=== PATIENT | female | born 1965 | race Two or more races ===

== ENCOUNTER 2024-09-02 17:28 | Emergency (ER) | payer MEDICAID ==
[~2024-09-02] VITALS: Ht 157.5 cm; Wt 96.8 kg
[2024-09-02 17:37] VITALS: BP 127/87; PULSE 58; RESP 18; TEMP 98.2; O2SAT 100
== END 2024-09-02 20:33 | disposition home or self-care (01) ==
LOC: ER 17:29
DX: S93.492A Sprain of other ligament of left ankle, initial encounter (principal); X50.9XXA Other and unspecified overexertion or strenuous movements or postures, initial encounter; Y93.01 Activity, walking, marching and hiking; Y92.89 Other specified places as the place of occurrence of the external cause; Y99.8 Other external cause status
CPT/HCPCS: 73610; 99284

== ENCOUNTER 2025-01-06 15:29 | Emergency (ER) | payer MEDICAID ==
[~2025-01-06] VITALS: Ht 157.5 cm; Wt 78.8 kg
[2025-01-06 15:33] VITALS: TEMP 97.6
[2025-01-06 17:10] VITALS: BP 162/85; PULSE 68; O2SAT 98
[2025-01-06 17:17] LABS: BILIRUBIN,URINE NEGATIVE (Neg); CLARITY,URINE SLIGHTLY CLOUDY (Clear); COLOR,URINE YELLOW (Yellow); GLUCOSE, URINE NEGATIVE (Neg); KETONES,URINE TRACE mg/dl (Neg); LEUKOCYTE ESTERASE ,URINE NEGATIVE (Neg); OCCULT BLOOD,URINE TRACE-INTACT (Neg); PROTEIN,URINE NEGATIVE (Neg); UROBILINOGEN,URINE 0.2 E.U/dL (0.2-1.0)
[2025-01-06 17:34] LABS: UA COLLECTION TYPE CLN CATCH MIDSTREAM
[2025-01-06 17:36] LABS: WBC,URINE 0-4 /HPF (0-4)
[2025-01-06 17:37] LABS: BACTERIA,URINE 4+ /HPF (Neg); MUCUS STRANDS FEW /LPF (Neg); RBC,URINE 0-2 /HPF (0-2); SQUAMOUS EPITHELIAL CELL,UR FEW /LPF (FEW)
[2025-01-06 17:42] LABS: NITRITES, URINE POSITIVE (Neg)
[2025-01-06] MEDS ORDERED: CEPH-585 PO (18:10)
[2025-01-06] MEDS ORDERED: METH-798 PO (18:10)
[2025-01-06 18:12] VITALS: RESP 17
[2025-01-06] MEDS: ketorolac trometh 30MG/ML vial 30 MG/ML VIAL IV STA (18:12)
[2025-01-06] MEDS: CefTRIAXone 1000mg IM Kit (w/lidocaine diluent) IM STA (18:13)
== END 2025-01-06 18:33 | disposition home or self-care (01) ==
LOC: ER 15:29
DX: M54.9 Dorsalgia, unspecified (principal); N39.0 Urinary tract infection, site not specified
CPT/HCPCS: 81001; 87088; 87186; 96372; 96374; 99284; J0696; J1885; 87077

== ENCOUNTER 2025-01-20 13:57 | Emergency (ER) | payer MEDICAID ==
[~2025-01-20] VITALS: Ht 157.5 cm; Wt 78.3 kg
[~2025-01-20 13:57] MED LIST: METH-798 PO
[2025-01-20 13:59] VITALS: BP 115/82; PULSE 67; O2SAT 97
[2025-01-20 14:30] LABS: BILIRUBIN,URINE NEGATIVE (Neg); CLARITY,URINE CLEAR (Clear); COLOR,URINE YELLOW (Yellow); GLUCOSE, URINE NEGATIVE (Neg); KETONES,URINE NEGATIVE (Neg); LEUKOCYTE ESTERASE ,URINE NEGATIVE (Neg); NITRITES, URINE NEGATIVE (Neg); OCCULT BLOOD,URINE TRACE-INTACT (Neg); PROTEIN,URINE NEGATIVE (Neg); UROBILINOGEN,URINE 0.2 E.U/dL (0.2-1.0)
[2025-01-20 14:31] LABS: URINE HCG NEGATIVE (NEG)
[2025-01-20 14:35] LABS: UA COLLECTION TYPE CLN CATCH MIDSTREAM
[2025-01-20 14:37] LABS: BACTERIA,URINE NONE SEEN /HPF (Neg); MUCUS STRANDS NONE SEEN /LPF (Neg); RBC,URINE 0-2 /HPF (0-2); SQUAMOUS EPITHELIAL CELL,UR FEW /LPF (FEW); WBC,URINE 0-4 /HPF (0-4)
[2025-01-20] MEDS ORDERED: ketorolac trometh 15mg/ml vial 15 MG/ML ML IM ONE (15:50)
[2025-01-20] MEDS: ketorolac trometh 30MG/ML vial 30 MG/ML VIAL IM ONE (16:05)
[2025-01-20 17:29] VITALS: RESP 16
[2025-01-20] MEDS ORDERED: IBUP-864 PO (18:32)
[2025-01-20 18:36] VITALS: TEMP 98
== END 2025-01-20 18:48 | disposition home or self-care (01) ==
LOC: ER 13:57
DX: R19.00 Intra-abdominal and pelvic swelling, mass and lump, unspecified site (principal)
CPT/HCPCS: 74176; 76856; 81001; 81025; 93976; 96372; 99285; J1885

== ENCOUNTER 2025-04-18 08:22 | Emergency (ER) | payer MEDICAID ==
[~2025-04-18] VITALS: Ht 157.5 cm; Wt 77.7 kg
[~2025-04-18 08:22] MED LIST changes: +IBUP-864 PO
[2025-04-18 08:23] VITALS: BP 148/90; PULSE 70; RESP 15; TEMP 97.7; O2SAT 99
--- NOTE | 2025-04-18 09:23 | Physician Documentation ---
History of Present Illness ~ Chief Complaint: Laceration Stated Complaint: FINGER LACS Time Seen by MD: 09:17 OK to notify your PCP?: Yes Source: patient Mode of Arrival: POV Exam Limitations: no limitations HPI 59-year-old female presents with multiple small lacerations and abrasions to her bilateral fingers. She states that she was reaching up high and trying to grab a plate off the shelf and it slipped and broke in her hands. Last tetanus vaccine is unknown. No blood thinners. Bleeding controlled with a Band-Aid. Tetanus Within 5 Years: No Medication Reconciliation Allergies: Coded Allergies: No Known Allergies (Unverified , 01/06/25) Scheduled Ibuprofen (Ibu), 1 TAB PO Q8H Methocarbamol (Methocarbamol), 1-2 TAB PO Q8H Review of Systems All Other Systems at this time: Reviewed and Negative Physical Exam Vital Signs: RN Vital Signs have been reviewed: Yes, Temperature: 97.7, Heart Rate: 70, Respiratory Rate: 15, BP: 148/90, Pulse Oximetry: 99, Weight: 77.730 Oxygen Flow Rate: 0 Pulse Oximetry Reflects: adequate oxygenation Physical Exam General: Alert, no distress. HEENT: No injection, moist mucous membranes. Neck: Full range of motion. Respiratory: No respiratory distress, equal chest rise and fall. Chest: No accessory muscle use. Cardiovascular: Regular rate and rhythm. Gastrointestinal: Nondistended. Extremities: Good CSM, good sensation, full range of motion in bilateral fingers. Neurologic: Oriented x4. Psychiatric: Normal mood and affect. Skin: Small superficial laceration to right middle finger, right index finger and left middle finger all at the proximal interphalangeal joints. There is a small abrasion to the right index MCP joint and left thumb. Procedures Laceration/Wound Repair Laceration : Anesthesia: none Prep: irrigated by nurse Debrided: minimal Undermining: none Margins: flaps aligned Foreign Body: not identified Repaired: skin Wound Repaired With: Steri-strips, Dermabond Dressing Applied: simple, non-adherent Splint Applied?: No Sling Applied?: No Tolerated Procedure Well?: yes, no complications Progress Results/Orders Reviewed/noted all lab results: Yes Results/Orders Orders - SOFIE [employer]MORE [employer] Finger(S) (04/18/25 09:26) * Additional Wound Care Orders (04/18/25 09:29) Finger(S) (04/18/25 ) Completed Orders - [employer]FI[employer] Finger(S) (04/18/25 09:26) Acetaminophen 325mg Tablet (Tylenol Tabl (04/18/25 09:30) Tetanus/Pertuss/Diph Acell/Pf (Boostrix (04/18/25 09:30) Finger(S) (04/18/25 ) Medications Received in ER Medications (Trade) Dose Ordered Sig/Ruby Route PRN Reason Start Time Stop Time Status Last Admin Dose Admin (Tylenol tablet) 650 mg ONCE ONCE PO 04/18/25 09:30 04/18/25 09:36 DC 04/18/25 10:03 650 MG (Boostrix vaccine syringe) 0.5 ml ONCE ONCE IMVAC 04/18/25 09:30 04/18/25 09:36 DC 04/18/25 10:05 0.5 ML Vital Signs 04/18/25 08:23 Temp 97.7 Pulse 70 Resp 15 B/P (MAP) 148/90 Pulse Ox 99 O2 Flow Rate 0 EKG/XRAY/CT/US/VASC/MRI Bone/Soft Tissue X-Ray (Ext.) : Additional Comment Bilateral fingers x-rays; no joint effusion, no acute fracture, no soft tissue swelling, no dislocation, or foreign body. Medical Decision Making Findings 59-year-old female presents with bilateral finger small lacerations and abrasions after plate broke when when she was taken off a shelf. Bleeding controlled on arrival with Band-Aids. The small lacerations are very superficial but to rule out any foreign bodies from the broken plate I obtained bilateral finger x-rays. x-rays do not reveal any foreign body. I irrigated all wounds thoroughly and closed the small lacerations with Steri-Strips and skin glue. She does not remember when her last tetanus was so that was administered while here in the department. She was given Tylenol for pain control. She should monitor for signs and symptoms of infection which we discussed her since she is not being sent home with an antibiotic. If any of those symptoms of infection arrived she should be seen immediately. She should return back here for any new or worsening symptoms and follow up with her primary care in the next 4 days. She has also been educated to let the skin glue come off by itself and do not pick at it. Differential Dx:Considerations: Include: Contusion, Fracture, Neurovascular injury, Retained foreign body Departure Disposition: 01 HOME / SELF CARE / HOMELESS Impression: Primary Impression: Laceration Condition: Stable Discharge Instructions: Laceration Care (Skin Glue) Additional Instructions: You can take Tylenol and/or ibuprofen for pain relief at home. Please allow for the Steri-Strips and skin glue to come off naturally and do not pick at it. They should fall off in roughly 5 days. You can get them wet but do not use any lotions or ointments as this causes the glue to, faster. Keep wounds clean and dry. If you notice any signs of infection such as fevers, redness around the site, purulent discharge you may have a infected wound which would require antibiotics and for you to be seen immediately. Recent prior primary care provider in the next 4 days and return back here for any new or worsening symptoms. Referrals: NO PRIMARY CARE PROVIDER (PCP) Education Educated: Patient Educated regarding: diagnosis, treatment, prognosis, need for follow up Signature Scribe Signature: . Attestation: Scribed for Sofie Elmore [employer] by Sofie Soriano NP . 04/18/25 10:37 SOFIE ELMOREP Apr 18, 2025 09:23
[2025-04-18] MEDS: acetaminophen 325mg tablet PO ONE (10:03)
[2025-04-18] MEDS: TETanus/Pertussis (Acell)/Diphther VAC/PF (Tdap-Adult) 0.5ml syringe IMVAC ONE (10:05)
--- NOTE | 2025-04-18 10:11 | RADIOLOGY REPORT ---
BILATERAL FINGERS: 3 view(s) were obtained HISTORY: LACERATION LT 2ND FINGER COMPARISON: None. FINDINGS: Right fingers: No fracture. No osseous lesions. Bones are in anatomic alignment. Moderate degenerativ e changes of the 1st and 2nd distal interphalangeal joints. Left fingers: No fracture. No osseous lesions. Bones are in anatomic alignment. Soft tissue swelling. Moderate degenerative changes of the 2nd distal interphalangeal joint. IMPRESSION: 1. Soft tissue swelling of the 2nd digit without fracture 2. Moderate interphalangeal joint degenerative changes
== END 2025-04-18 10:38 | disposition home or self-care (01) ==
LOC: ER 08:22
DX: S61.212A Laceration without foreign body of right middle finger without damage to nail, initial encounter (principal); S61.213A Laceration without foreign body of left middle finger without damage to nail, initial encounter; S61.210A Laceration without foreign body of right index finger without damage to nail, initial encounter; X58.XXXA Exposure to other specified factors, initial encounter; Y93.89 Activity, other specified; Y92.89 Other specified places as the place of occurrence of the external cause; Y99.8 Other external cause status
CPT/HCPCS: 12001; 73140; 90471; 90715; 99283

== ENCOUNTER 2025-09-04 05:50 | Emergency (ER) | payer MEDICAID ==
[~2025-09-04] VITALS: Ht 157.5 cm; Wt 76.4 kg
[2025-09-04 05:54] VITALS: TEMP 98.2
--- NOTE | 2025-09-04 07:57 | Physician Documentation ---
History of Present Illness ~ Chief Complaint: Abscess Stated Complaint: UNDERARM PAIN Time Seen by MD: 06:00 Primary Medical Doctor: None HPI 60-year-old female presenting for a lump in her right axilla. She states that there is a lump that has grown in size and has become red and more swollen. This 1st appeared about a week ago and has gradually been getting worse. She states that now when she tries to do any work around the house or in the garden her armpit will hurt. She otherwise denies any fever, chills or any other associated symptoms. Tetanus Within 5 Years: Yes (2024) Medication Reconciliation Allergies: Coded Allergies: No Known Allergies (Unverified , 09/04/25) Scheduled Ibuprofen (Ibu), 1 TAB PO Q8H Methocarbamol (Methocarbamol), 1-2 TAB PO Q8H Review of Systems All Other Systems at this time: Reviewed and Negative Physical Exam Vital Signs: Temperature: 98.2, Source: Oral, Heart Rate: 56, Respiratory Rate: 16, BP: 165/75, Pulse Oximetry: 98, Weight: 76.400 General Appearance I have reviewed the triage vitals. CONST: Well developed and well nourished. In no acute distress HENT: Head Atraumatic EYES: Pupils are equal, round and reactive to light. Normal conjunctiva NECK: Normal range of motion. Supple. CARDIO: Normal rate and regular rhythm. No murmurs, rubs, or gallops. S1, S2. PULM/CHEST: No respiratory distress. Lungs clear to auscultation. No wheeze ABD: Soft and nontender. Nondistended. Bowel sounds normal. No guarding. : Exam deferred MSK: No edema. No deformity. NEURO: Alert and oriented to person, place and time. Moving all extremities SKIN: There is a cystic mass in the right axilla which is erythematous, indurated and tender to palpation PSYCH: Normal mood and affect. Good eye contact. Procedures I & D Procedure : Anesthesia: Lidocaine w/ Epi Blade Size: 11 Prep/Supplies: betadine prep, drapes applied, dressing applied, packing placed Incision: mass incised, pus drained Tolerated Procedure Well?: yes, no complications Progress Results/Orders Results/Orders Completed Orders - ARIC EMERSON MD Lidocaine 1% W/Epi 1:100,000 (Xylocaine (09/04/25 08:00) Vital Signs 09/04/25 05:54 Temp 98.2 Pulse 56 Resp 16 B/P (MAP) 165/75 Pulse Ox 98 Medical Decision Making Additional information obtaine: N/A Findings - Differential Dx:Considerations: Include: Abscess Additional Comment 60-year-old female presenting with a right axillary abscess. The abscess was incised and drained-please see procedure note. Patient does not require antibiotics as this was a very localized abscess from those sounds of surrounding cellulitis. Patient advised to return in two days for a wound check. In the meantime I advised her to avoid any submersion in water and try to keep the wound clean and dry. Return to the ED in two days for wound check or return sooner with any worsening symptoms. Departure Disposition: 01 HOME / SELF CARE / HOMELESS Impression: Primary Impression: Abscess Condition: Improved Discharge Instructions: Abscess, Care After Additional Instructions: Por favor regrese en 2 conte para revision de la herida. Mantenga la herida limpia y seca. Regrese mas pronto si presenta empeoramiento de los sintomas. Referrals: NO PRIMARY CARE PROVIDER (PCP) Signature Scribe Signature: - Attestation: - ARIC EMERSON MD Sep 04, 2025 07:57
[2025-09-04] MEDS: LIDOcaine 1% W/epiNEPHrine 1:100,000 20ml vial SQ ONE (08:09)
[2025-09-04 08:58] VITALS: BP 126/75; PULSE 58; RESP 16; O2SAT 94
== END 2025-09-04 08:50 | disposition home or self-care (01) ==
LOC: ER 05:51
DX: L02.411 Cutaneous abscess of right axilla (principal)
CPT/HCPCS: 10060; 99282; A6407; A6258; A6449

== ENCOUNTER 2025-09-06 14:30 | Emergency (ER) | payer MEDICAID ==
[~2025-09-06] VITALS: Ht 162.6 cm; Wt 77.3 kg
[2025-09-06 14:37] VITALS: BP 121/68; RESP 18; TEMP 98.5; O2SAT 99
--- NOTE | 2025-09-06 15:51 | Physician Documentation ---
History of Present Illness ~ Chief Complaint: Wound Re-Check Stated Complaint: RECHECK ABSCESS Time Seen by MD: 15:13 Primary Medical Doctor: None HPI 60-year-old female who is status menezes status post incision and drainage right axilla of small abscess. Return to the emergency department today for re- evaluation. No erythema and/or drainage. Otherwise doing well. Remains gross ly neurologically intact. No reported fevers. Tetanus within 5 years?: Yes (2024) Medication Reconciliation Allergies: Coded Allergies: No Known Allergies (Unverified , 09/04/25) Scheduled Ibuprofen (Ibu), 1 TAB PO Q8H Methocarbamol (Methocarbamol), 1-2 TAB PO Q8H Review of Systems All Other Systems at this time: Reviewed and Negative Musculoskeletal: Reports: other Physical Exam Vital Signs: RN Vital Signs have been reviewed: Yes, Temperature: 98.5, Source: Temporal, Respiratory Rate: 18, BP: 121/68, Pulse Oximetry: 99, Weight: 77.270 Oxygen Flow Rate: 0 General Appearance: alert, WD/WN Neck: non-tender Cardiovascular: normal peripheral pulses Respiratory: no respiratory distress Chest: no accessory muscle use Extremities: other (1/4 cm non erythemia non draining) Skin: warm/dry Neurologic: oriented x4 Lymphatics: normal inspection Psychiatric: normal mood/affect Progress Results/Orders Results/Orders Vital Signs 09/06/25 14:37 Temp 98.5 Resp 18 B/P (MAP) 121/68 Pulse Ox 99 O2 Flow Rate 0 Medical Decision Making Additional information obtaine: old records Findings Examination history consistent with well healing abscess to the right axilla status post incision and drainage not requiring packing. Patient is cleared to begin warm moist soaks and return as needed. Differential Dx:Considerations: Include: Abscess, Cellulitis, Dressing change, Healing wound Departure Disposition: 01 HOME / SELF CARE / HOMELESS Impression: Primary Impression: Wound check incision and drainage Condition: Improved Discharge Instructions: Abscess, Care After Additional Instructions: You may now apply warm moist soaks to the armpit has a continues to heal. No need for antibiotics. Please have your doctor re-evaluate in 7-10 days or return to the emergency department if worse. Thank you for visiting [facility]. Referrals: NO PRIMARY CARE PROVIDER (PCP) Education Educated: Patient Educated regarding: diagnosis, treatment, prognosis, need for follow up Signature Scribe Signature: . Attestation: . LISA SCOTT [facility] Sep 06, 2025 15:51
== END 2025-09-06 16:23 | disposition home or self-care (01) ==
LOC: ER 14:30
DX: Z48.817 Encounter for surgical aftercare following surgery on the skin and subcutaneous tissue (principal); Z98.890 Other specified postprocedural states; Z79.899 Other long term (current) drug therapy
CPT/HCPCS: 99282; A6402; A6410